=== PATIENT | female | born 1990 | race Caucasian/White ===

== ENCOUNTER 2016-07-15 08:39 | Emergency (ER) | payer BC ==
[~2016-07-15] VITALS: Ht 160 cm; Wt 53.5 kg
[2016-07-15] MEDS ORDERED: NS IV 1000 ML 1,000 ML IV STA (08:51)
[2016-07-15] MEDS ORDERED: KETOROLAC 30 MG/ML VIAL IVP STA (08:51)
[2016-07-15] MEDS ORDERED: HYOSCYAMINE 0.125 MG (LEVSIN) TAB SL ONE (09:00)
[2016-07-15 09:01] LABS: BILIRUBIN,URINE NEGATIVE (NEGATIVE); KETONES,URINE 4+ (NEGATIVE); LEUKOCYTE ESTERASE ,URINE NEGATIVE (NEGATIVE); NITRITE,URINE NEGATIVE (NEGATIVE); PH,URINE 6 (5-9); PROTEIN,URINE 1+ (NEGATIVE); UROBILINOGEN,URINE NORMAL (NORMAL)
[2016-07-15 09:07] LABS: BASOPHILS % (AUTO) 0 % (0-10); EOSINOPHILS % (AUTO) 0 % (0-10); LYMPHOCYTES # (AUTO) 0.7 X 10^3 (1.0-4.0); LYMPHOCYTES % (AUTO) 4 % (12-44); MEAN CORPUSCULAR HEMOGLOBIN 29 PG (25-34); MEAN CORPUSCULAR HGB CONC 34 G/DL (32-36); MEAN CORPUSCULAR VOLUME 86 FL (80-99); MEAN PLATELET VOLUME 10.7 FL (7.4-10.4); MONOCYTES % (AUTO) 5 % (0-12); NEUTROPHILS # (AUTO) 19.2 X 10^3 (1.8-7.8); NEUTROPHILS % (AUTO) 92 % (42-75); PLATELET COUNT 340 10^3/uL (130-400); RED BLOOD COUNT 4.89 10^6/uL (4.35-5.85)
[2016-07-15 09:13] LABS: WBC,URINE RARE /HPF
--- NOTE | 2016-07-15 09:22 | ED Abdominal Pain ---
General Chief Complaint: Abdominal/GI Problems Stated Complaint: ABD PAIN Source of Information: Patient Exam Limitations: No Limitations History of Present Illness Time Seen By Provider: 08:42 Initial Comments Here with report of lower abdominal pain started overnight and was quite severe this morning. She went to the urgent care clinic and then was sent here for further evaluation do to the significance of the pain. Reports multiple episodes of vomiting overnight. She reports that she's had this a few times before but only one other time that was this bad. She was told at that time it was an infection. She does admit that she has chronic bowel problems and has been told that she probably needs to follow up with somebody at some point. Denies vaginal discharge or bleeding. She is supposed to start her menstrual period next Monday. Timing/Duration: 4-6 Hours, Changing Over Time Severity/Quality: Moderate, Severe, Sharp, Stabbing Location: Suprapubic Radiation: RLQ, LLQ Activities at Onset: None Modifying Factors: Worsens With Movement, Improves With Resting Associated Symptoms: No Back Pain, No Chest Pain, No Fever/Chills, Nausea/ Vomiting Allergies and Home Medications Allergies Coded Allergies: No Known Drug Allergies (Unverified , 07/15/16) Home Medications Ciprofloxacin HCl 500 Mg Tablet, 500 MG PO BID, #14 Prescribed by: DON HERNANDEZ on 07/15/16 1103 Hyoscyamine Sulfate 0.125 Mg Tab.subl, 0.125 MG SL Q4H PRN for ABDOMINAL PAIN, # 20 Ref 0 Prescribed by: DON HERNANDEZ on 07/15/16 1103 Metronidazole 500 Mg Tablet, 500 MG PO BID, #14 Ref 0 Prescribed by: DON HERNANDEZ on 07/15/16 1103 Ondansetron 4 Mg Tab.rapdis, 4 MG PO Q6H PRN for NAUSEA/VOMITING, #8 Ref 0 Prescribed by: DON HERNANDEZ on 07/15/16 1103 Review of Systems Constitutional: see HPI, No chills, No fever EENTM: No Symptoms Reported Respiratory: No Symptoms Reported, Denies Cough, Denies Shortness of Air Cardiovascular: Denies Chest Pain, Denies Edema Gastrointestinal: See HPI, Abdominal Pain, Denies Diarrhea, Nausea, Denies Rectal Bleeding, Vomiting Genitourinary: Denies Discharge, Denies Pain Musculoskeletal: no symptoms reported Skin: no symptoms reported All Other Systems Reviewed Negative Unless Noted: Yes Past Cshmaok-Arlyxs-Qviazw Hx Patient Social History Alcohol Use: Denies Use Recreational Drug Use: No Smoking Status: Never a Smoker Recent Foreign Travel: No Contact w/Someone Who Travel: No Recent Hopitalizations: No Surgeries HX Surgeries: No Respiratory Hx Respiratory Disorders: No Cardiovascular Hx Cardiac Disorders: No Neurological Hx Neurological Disorders: No Genitourinary Hx Genitourinary Disorders: No Gastrointestinal Hx Gastrointestinal Disorders: No Musculoskeletal Hx Musculoskeletal Disorders: No Psychosocial Hx Psychiatric Problems: No Reviewed Nursing Assessment Reviewed/Agree w Nursing PMH: Yes Family Medical History Significant Family History: No Pertinent Family Hx Physical Exam Vital Signs VS - Last 72 Hours, by Label 07/15/16 08:43 Temp 98.7 Pulse 110 Resp 18 B/P (MAP) 122/86 Pulse Ox 99 O2 Delivery Room Air Capillary Refill : General Appearance: WD/WN, no apparent distress HEENT: PERRL/EOMI, pharynx normal Neck: full range of motion, supple Respiratory: lungs clear, normal breath sounds Cardiovascular: regular rate, rhythm, no murmur Gastrointestinal: soft, No guarding, No rebound, tenderness (lower abdominal tenderness noted without rebound or guarding.) Extremities: non-tender, normal inspection Back: normal inspection, no CVA tenderness, no vertebral tenderness Neurologic/Psychiatric: alert, oriented x 3 Skin: normal color, warm/dry Progress/Results/Core Measures Results/Orders Lab Results Laboratory Tests Test 07/15/16 08:52 07/15/16 08:59 Range/Units Urine Color YELLOW Urine Clarity CLEAR Urine pH 6 5-9 Urine Specific [place] 1.020 1.016-1.022 Urine Protein 1+ H NEGATIVE Urine Glucose (UA) NEGATIVE NEGATIVE Urine Ketones 4+ H NEGATIVE Urine Nitrite NEGATIVE NEGATIVE Urine Bilirubin NEGATIVE NEGATIVE Urine Urobilinogen NORMAL NORMAL MG/DL Urine Leukocyte Esterase NEGATIVE NEGATIVE Urine RBC (Auto) 3+ H NEGATIVE Urine RBC 2-5 H /HPF Urine WBC RARE /HPF Urine Squamous Epithelial Cells 2-5 /HPF Urine Crystals NONE /LPF Urine Bacteria FEW H /HPF Urine Casts NONE /LPF Urine Mucus SMALL H /LPF Urine Culture Indicated NO White Blood Count 21.0 H 4.3-11.0 10^3/uL Red Blood Count 4.89 4.35-5.85 10^6/uL Hemoglobin 14.1 11.5-16.0 G/DL Hematocrit 42 35-52 % Mean Corpuscular Volume 86 80-99 FL Mean Corpuscular Hemoglobin 29 25-34 PG Mean Corpuscular Hemoglobin Concent 34 32-36 G/DL Red Cell Distribution Width 13.0 10.0-14.5 % Platelet Count 340 130-400 10^3/uL Mean Platelet Volume 10.7 H 7.4-10.4 FL Neutrophils (%) (Auto) 92 H 42-75 % Lymphocytes (%) (Auto) 4 L 12-44 % Monocytes (%) (Auto) 5 0-12 % Eosinophils (%) (Auto) 0 0-10 % Basophils (%) (Auto) 0 0-10 % Neutrophils # (Auto) 19.2 H 1.8-7.8 X 10^3 Lymphocytes # (Auto) 0.7 L 1.0-4.0 X 10^3 Monocytes # (Auto) 1.0 0.0-1.0 X 10^3 Eosinophils # (Auto) 0.0 0.0-0.3 10^3/uL Basophils # (Auto) 0.0 0.0-0.1 10^3/uL Neutrophils % (Manual) 85 % Lymphocytes % (Manual) 7 % Monocytes % (Manual) 1 % Eosinophils % (Manual) 0 % Basophils % (Manual) 0 % Band Neutrophils 7 % Blood Morphology Comment NORMAL Sodium Level 140 135-145 MMOL/L Potassium Level 3.6 3.6-5.0 MMOL/L Chloride Level 105 98-107 MMOL/L Carbon Dioxide Level 23 21-32 MMOL/L Anion Gap 12 5-14 MMOL/L Blood Urea Nitrogen 12 7-18 MG/DL Creatinine 0.78 0.60-1.30 MG/DL Estimat Glomerular Filtration Rate > 60 BUN/Creatinine Ratio 15 Glucose Level 104 70-105 MG/DL Calcium Level 8.8 8.5-10.1 MG/DL Total Bilirubin 1.2 H 0.1-1.0 MG/DL Aspartate Amino Transf (AST/SGOT) 17 5-34 U/L Alanine Aminotransferase (ALT/SGPT) 20 0-55 U/L Alkaline Phosphatase 62 40-136 U/L C-Reactive Protein High Sensitivity 2.71 H 0.00-0.50 MG/DL Total Protein 7.6 6.4-8.2 G/DL Albumin 4.3 3.2-4.5 G/DL My Orders Orders - DON HERNANDEZ MD Cbc With Automated Diff (07/15/16 08:51) Comprehensive Metabolic Panel (07/15/16 08:51) Hs C Reactive Protein (07/15/16 08:51) Ua Culture If Indicated (07/15/16 08:51) Urine Bedside (07/15/16 08:51) Ns Iv 1000 Ml (Sodium Chloride 0.9%) (07/15/16 08:51) Hyoscyamine Sl Tablet (Levsin Sl Tablet) (07/15/16 09:00) Saline Lock/Iv-Start (07/15/16 08:51) Ketorolac Injection (Toradol Injection) (07/15/16 08:51) Manual Differential (07/15/16 08:59) Ct Abd/Pelv W (Appendicitis) (07/15/16 09:16) Iohexol Injection (Omnipaque 350 Mg/Ml 1 (07/15/16 09:30) Ns (Ivpb) (Sodium Chloride 0.9% Ivpb Bag (07/15/16 09:30) Ns Iv 1000 Ml (Sodium Chloride 0.9%) (07/15/16 10:51) Medications Given in ED Current Medications Medications Dose Ordered Sig/Vika Route Start Time Stop Time Status Last Admin Dose Admin Hyoscyamine Sulfate 0.125 mg ONCE ONCE SL 07/15/16 09:00 07/15/16 09:01 DC 07/15/16 09:06 0.125 MG Iohexol 100 ml ONCE ONCE IV 07/15/16 09:30 07/15/16 09:31 DC 07/15/16 09:38 100 ML Sodium Chloride 100 ml ONCE ONCE IV 07/15/16 09:30 07/15/16 09:31 DC 07/15/16 09:38 80 ML Sodium Chloride 1,000 ml @ 0 mls/hr Q0M ONCE IV 07/15/16 10:51 07/15/16 10:54 DC 07/15/16 10:57 1,000 MLS/HR Vital Signs/I&O Vital Sign - Last 12Hours 07/15/16 08:43 Temp 98.7 Pulse 110 Resp 18 B/P (MAP) 122/86 Pulse Ox 99 O2 Delivery Room Air Point of Care Testing Urine -Bedside: Negative Progress Note : Progress Note Seen and evaluated. IV, labs, UA and UCG ordered. negative. Levsin 0.125 mg by mouth and Toradol 30 mg IV given. Normal saline [address] abdomen and pelvis ordered due to the lower abdominal pain. Monitor patient. 1050: Overall feeling much better. 4+ ketones noted on UA. Repeat normal saline [address] abdomen and pelvis results reviewed with the patient. She understands requirement for follow-up with surgeon. Diagnostic Imaging Diagonstic Imaging: CT Plain Films/CT/US/NM/MRI: abdomen, pelvis Comments PT STATUS: REG ER : 1990 PHYSICIAN: DON HERNANDEZ MD ADMIT DATE: 07/15/16/ER Draft Date of Exam:07/15/16 CT ABD/PELV W (APPENDICITIS) PROCEDURE: CT abdomen and pelvis with contrast, rule out appendicitis. TECHNIQUE: Multiple contiguous axial images were obtained through the abdomen and pelvis after the administration of intravenous contrast. INDICATION: Severe pelvic pain. Nausea, vomiting, and diarrhea. COMPARISON: 01/25/2016 FINDINGS: Included views of the lung bases are clear. CT abdomen: Normal appendix is identified. There is, however, mild thickening, hyperenhancement, and stratification involving the wall of the probable mid to distal ileum within the lower central pelvis. Involved small bowel loops are also mildly dilated There is small amount of free fluid also present within the pelvis. There is no loculated air-fluid collection. There is no pneumatosis, pneumoperitoneum, nor portal venous gas. The proximal small bowel loops are nondistended. The kidneys, adrenal glands, spleen, pancreas, and liver have a normal appearance. No abnormal mesenteric or retroperitoneal adenopathy is seen. Bony structures show no acute abnormalities. CT pelvis: Urinary bladder is grossly unremarkable. Again, there is mild free fluid within the pelvis. There is no loculated air-fluid collection nor free air. No abnormal lymph nodes are seen. Bony structures show no acute abnormalities. IMPRESSION: 1. Abnormal appearance to the mid to distal ileum small bowel within the lower central pelvis. Findings are nonspecific, but can be seen with infectious or inflammatory enteritis. 2. Mild free fluid within the pelvis, but no loculated air-fluid collection, pneumatosis, pneumoperitoneum, nor portal venous gas. 3. Normal-appearing appendix. Dictated on workstation # [id number] Dict: 07/15/16 0952 Trans: 07/15/16 1007 CLARISSE [id number] Interpreted by: MEGHNA GRAY Electronically signed by: Carmelina Impression Impression: Primary Impression: Inflammation of small intestine Additional Impression: Lower abdominal pain Disposition: 01 HOME, SELF-CARE Condition: Improved Departure-Patient Inst. Decision time for Depature: 10:58 Referrals: ERIK OGDEN,LOCAL PHYSICIAN (PCP) Primary Care Physician Patient Instructions: Acute Abdomen (Belly Pain), Adult (DC) Add. Discharge Instructions: All discharge instructions reviewed with patient and/or family. Voiced understanding. Clear liquid diet for 24-48 hours and then advance as tolerated slowly. Do not take any bowel stimulants. You may use probiotic of your choice per package directions. Follow up with Dr. Ogden next week for recheck and further evaluation. Call his office today for appointment and to set up 3 appointment lab draw. Let them know that the case was discussed with Dr. Ogden who wants to see you next week. Return for worse pain, persistent vomiting, blood in your vomit or stool, inability to eat or drink or other concerns as needed. Take medications as directed. Scripts Ondansetron (Ondansetron Odt) 4 Mg Tab.rapdis 4 MG PO Q6H Y for NAUSEA/VOMITING, #8 TAB 0 Refills Prov: DON HERNANDEZ MD 07/15/16 Metronidazole (Metronidazole) 500 Mg Tablet 500 MG PO BID, #14 TAB 0 Refills Prov: DON HERNANDEZ MD 07/15/16 Ciprofloxacin HCl (Ciprofloxacin HCl) 500 Mg Tablet 500 MG PO BID, #14 TAB Prov: DON HERNANDEZ MD 07/15/16 Hyoscyamine Sulfate (Hyoscyamine Sulfate) 0.125 Mg Tab.subl 0.125 MG SL Q4H Y for ABDOMINAL PAIN, #20 TAB 0 Refills Prov: DON HERNANDEZ MD 07/15/16 Copy Copies To 1: ERIK OGDEN TIMOTHY D MD July 15, 2016 09:22
[2016-07-15] MEDS ORDERED: NS 100 ML (IVPB) BAG IV ONE (09:30)
[2016-07-15] MEDS ORDERED: IOHEXOL 350 MG/ML 100 ML (OMNIPAQUE 350) VIAL IV ONE (09:30)
[2016-07-15 09:31] LABS: ALANINE AMINOTRANSFERASE 20 U/L (0-55); ALBUMIN 4.3 G/DL (3.2-4.5); ANION GAP 12 MMOL/L (5-14); ASPARTATE AMINO TRANSFERASE 17 U/L (5-34); BILIRUBIN,TOTAL 1.2 MG/DL (0.1-1.0); BLOOD UREA NITROGEN 12 MG/DL (7-18); BUN/CREATININE RATIO 15; CALCIUM 8.8 MG/DL (8.5-10.1); CARBON DIOXIDE 23 MMOL/L (21-32); CHLORIDE 105 MMOL/L (98-107); CREATININE SERUM 0.78 MG/DL (0.60-1.30); GFR ESTIMATED > 60; GLUCOSE 104 MG/DL (70-105); POTASSIUM 3.6 MMOL/L (3.6-5.0); SODIUM 140 MMOL/L (135-145); TOTAL PROTEIN 7.6 G/DL (6.4-8.2); hs C REACTIVE PROTEIN 2.71 MG/DL (0.00-0.50)
[2016-07-15 09:33] LABS: BAND NEUTROPHILS 7 %; BASOPHILS % (MANUAL) 0 %; EOSINOPHILS % (MANUAL) 0 %; LYMPHOCYTES % (MANUAL) 7 %; NEUTROPHILS % (MANUAL) 85 %
--- NOTE | 2016-07-15 10:07 | Diagnostic Imaging Report ---
PROCEDURE: CT abdomen and pelvis with contrast, rule out appendicitis. TECHNIQUE: Multiple contiguous axial images were obtained through the abdomen and pelvis after the administration of intravenous contrast. INDICATION: Severe pelvic pain. Nausea, vomiting, and diarrhea. COMPARISON: 01/25/2016 FINDINGS: Included views of the lung bases are clear. CT abdomen: Normal appendix is identified. There is, however, mild thickening, hyperenhancement, and stratification involving the wall of the probable mid to distal ileum within the lower central pelvis. Involved small bowel loops are also mildly dilated There is small amount of free fluid also present within the pelvis. There is no loculated air-fluid collection. There is no pneumatosis, pneumoperitoneum, nor portal venous gas. The proximal small bowel loops are nondistended. The kidneys, adrenal glands, spleen, pancreas, and liver have a normal appearance. No abnormal mesenteric or retroperitoneal adenopathy is seen. Bony structures show no acute abnormalities. CT pelvis: Urinary bladder is grossly unremarkable. Again, there is mild free fluid within the pelvis. There is no loculated air-fluid collection nor free air. No abnormal lymph nodes are seen. Bony structures show no acute abnormalities. IMPRESSION: 1. Abnormal appearance to the mid to distal ileum small bowel within the lower central pelvis. Findings are nonspecific, but can be seen with infectious or inflammatory enteritis. 2. Mild free fluid within the pelvis, but no loculated air-fluid collection, pneumatosis, pneumoperitoneum, nor portal venous gas. 3. Normal-appearing appendix. Dictated by: Dictated on workstation # [id number]
[2016-07-15] MEDS ORDERED: NS IV 1000 ML 1,000 ML IV ONE (10:51)
[2016-07-15] MEDS ORDERED: HYOS0.1218 SL (11:03)
[2016-07-15] MEDS ORDERED: CIPR500T4 PO (11:03)
[2016-07-15] MEDS ORDERED: ONDA4TAB11 PO (11:03)
[2016-07-15] MEDS ORDERED: METR500T21 PO (11:03)
[2016-07-15 11:45] VITALS: BP 125/76
== END 2016-07-15 11:48 | disposition home or self-care (01) ==
LOC: EDUNIT# 08:39 → ER 08:42
DX: K52.9 Noninfective gastroenteritis and colitis, unspecified (principal)
CPT/HCPCS: 36415; 74177; 80053; 81000; 84703; 85007; 85027; 86141; 96361; 96374

== ENCOUNTER 2016-08-26 05:39 | Outpatient (CLI) | payer BC ==
[~2016-08-26] VITALS: Ht 160 cm; Wt 52.2 kg
[~2016-08-26 05:39] MED LIST: CIPR500T4 PO; HYOS0.1218 SL; METR500T21 PO; ONDA4TAB11 PO
== END 2016-08-26 11:03 ==
LOC: PREOP 05:39
PROVIDERS: ATTEND Surgery
DX: Z01.818 Encounter for other preprocedural examination (principal); R10.31 Right lower quadrant pain; R10.32 Left lower quadrant pain

== ENCOUNTER 2016-08-30 06:27 | Day surgery (SDC) | payer BC ==
[~2016-08-30] VITALS: Ht 160 cm; Wt 52.2 kg
[2016-08-30] MEDS ORDERED: fentaNYL INJECTION 100 MCG/2 ML AMP ONE (06:43)
[2016-08-30] MEDS ORDERED: MIDAZOLAM 2 MG/2 ML (VERSED) VIAL ONE (06:43)
[2016-08-30] MEDS ORDERED: proPOfol 200 MG/20 ML (DIPRIVAN) VIAL IV ONE (06:43)
[2016-08-30] MEDS ORDERED: NS IV 1000 ML 1,000 ML ONE (06:52)
[2016-08-30] MEDS ORDERED: NS IV 500 ML 500 ML IV PRN (06:53)
[2016-08-30] MEDS ORDERED: FLUMAZENIL (ROMAZICON) 0.1 MG/ML 5 ML VIAL INJ PRN (07:00)
[2016-08-30] MEDS ORDERED: NALOXONE 0.4 MG/ML 1 ML (NARCAN) VIAL IVP PRN (07:00)
[2016-08-30 07:14] VITALS: BP 128/80
[2016-08-30] MEDS ORDERED: NS IV 1000 ML 1,000 ML IV SCH (08:30)
--- NOTE | 2016-08-30 08:33 | Progress Note-Post Operative ---
Post-Operative Progess Note Surgeon (s)/Traction Power Engineer (s) Surgeon ERIK PETERS DO Traction Power Engineer: na Pre-Operative Diagnosis right and left lower abdominal pian Post-Operative Diagnosis inflammation at ileum, rectum Procedure & Operative Findings Date of Procedure 08/30/16 Procedure Performed/Findings colonoscopy with cold biopsies ileum and rectum Anesthesia Type per retail client solutions analyst Estimated Blood Loss Estimated blood loss (mL): none Specimens/Packing Specimens Removed ileum, and rectal ERIK PETERS DO Aug 30, 2016 8:33 am
--- NOTE | 2016-08-30 08:34 | Discharge Inst-Simple/Standard ---
Discharge Inst-Standard Patient Instructions/Follow Up Plan of Care/Instructions/FU: 2 weeks Alin Activity as Tolerated: Yes Discharge Diet: Regular Diet ERIK PETERS DO Aug 30, 2016 8:34 am
[2016-08-30 08:40] VITALS: BP 106/68
[2016-08-30 09:10] VITALS: BP 110/65
[2016-08-30 09:15] VITALS: BP 110/65
--- NOTE | 2016-08-30 19:19 | OPERATIVE REPORT ---
DATE OF SERVICE: 08/30/2016 PREOPERATIVE DIAGNOSIS: Left lower quadrant abdominal pain. POSTOPERATIVE DIAGNOSIS: Some inflammation of the terminal ileum and rectum. PROCEDURE: Colonoscopy with cold biopsies of the ileum and rectal inflammation. SURGEON: Erik Ogden DO ANESTHESIA: Per STUDENT [employer] DEAN. ESTIMATED BLOOD LOSS: None. COMPLICATIONS: None. INDICATIONS: The patient is a 25-year-old female who has been having right and left lower quadrant abdominal pain. She had a CT scan performed previously demonstrating some inflammation of the terminal ileum. She was explained the risks and benefits of procedure and wished to proceed with procedure. Consent was signed and on the chart. DESCRIPTION OF PROCEDURE: The patient was taken to the endoscopy suite, placed in left lateral recumbent position. Timeout was performed. Digital rectal exam was performed. There were no palpable polyps, masses or ulcerations. Scope was inserted in the rectum and advanced all the way to the cecum with minimal difficulty. Prep was adequate. Scope was then slowly retracted back. There were no polyps, masses or ulcerations within the cecum. The terminal ileum was intubated. The small amount of inflammation or erythematous changes was present in the ileum. Biopsies were obtained. The scope was then slowly retracted back into the colon where it was then continued to be slowly retracted back. There were no polyps, masses or ulcerations within the ascending colon, transverse colon, descending colon and sigmoid colon. As the scope was being retracted in the rectum, there was a small area of erythematous changes as well. Biopsy of this area was obtained. The scope was also retroflexed noting no other pathology. Scope was returned to its normal position, slowly withdrawn until completely removed. RECOMMENDATIONS: The patient will follow up on biopsies. At this time, we will not make any changes in medications. We will consider GI consultation. Job ID: [id number] DocumentID: [id number] Dictated Date: 08/30/2016 08:37:24 Watch Repair Person Date: 08/30/2016 14:35:41 Dictated By: ERIK OGDEN DO
== END 2016-08-30 09:15 | disposition home or self-care (01) ==
LOC: ENDO 06:27
PROVIDERS: ATTEND Surgery
DX: K52.9 Noninfective gastroenteritis and colitis, unspecified (principal); K62.89 Other specified diseases of anus and rectum
CPT/HCPCS: 84703

== ENCOUNTER 2019-02-09 20:12 | Emergency (ER) | payer BC ==
[~2019-02-09] VITALS: Ht 165 cm; Wt 63.6 kg
[~2019-02-09 20:12] MED LIST changes: +HYOS-19 SL; -HYOS0.1218 SL; +METR-145 PO; -METR500T21 PO
[2019-02-09] MEDS ORDERED: KETOROLAC 30 MG/ML VIAL IVP ONE (20:30)
--- NOTE | 2019-02-09 20:31 | ED Abdominal Pain ---
General Chief Complaint: Abdominal/GI Problems Stated Complaint: ABD PAIN Nursing Triage Note: Pt ambulates to RM 9 with c/o RLQ pain, deccreased appetite and dizziness x 3 days. Pt states she started her menstrual cycle on 02/07 and it has been more heavy than usual with small clots present. Pt has Hx of bladder infections. PT also reports urinary hesitancy, no burning. Sepsis Screen: No Definite Risk Source of Information: Patient Exam Limitations: No Limitations History of Present Illness Date Seen by Provider: Feb 09, 2019 Time Seen by Provider: 20:29 Initial Comments To ER with suprapubic/vaginal pain for the past 2-3 days. Preceding this was about a weeklong period of GI symptoms including nausea vomiting low-grade fever up to 100.5 and diarrhea. Those symptoms seem to have subsided, then she began her menstrual period 3 days ago. Typically her cycles last about 6 days, she is only on day 3 right now and has already had a tapering off of the vaginal bleeding. Timing/Duration: 1-2 Days Severity/Quality: Moderate Radiation: No Radiation Activities at Onset: None Associated Symptoms: Nausea/Vomiting Allergies and Home Medications Allergies Coded Allergies: No Known Drug Allergies (Unverified , 07/15/16) Home Medications Hyoscyamine Sulfate 0.125 Mg Tab.subl, 0.125 MG SL Q4H PRN for ABDOMINAL PAIN Prescribed by: DON HERNANDEZ on 07/15/16 1103 Ondansetron 4 Mg Tab.rapdis, 4 MG PO Q6H PRN for NAUSEA/VOMITING Prescribed by: DON HERNANDEZ on 07/15/16 1103 Patient Home Medication List Home Medication List Reviewed: Yes Review of Systems Review of Systems Constitutional: see HPI EENTM: No Symptoms Reported Respiratory: No Symptoms Reported Cardiovascular: No Symptoms Reported Gastrointestinal: See HPI, Abdominal Pain; Denies Constipated, Denies Diarrhea; Nausea Genitourinary: No Symptoms Reported Musculoskeletal: no symptoms reported Skin: no symptoms reported Psychiatric/Neurological: No Symptoms Reported Endocrine: No Symptoms Reported Past Dvrgwxu-Jjsygq-Nxfhws Hx Patient Social History Alcohol Use: Denies Use Recreational Drug Use: No Smoking Status: Never a Smoker Recent Foreign Travel: No Contact w/Someone Who Travel: No Recent Infectious Disease Expo: No Recent Hopitalizations: No Physical Abuse: No Sexual Abuse: No Mistreated: No Fear: No Seasonal Allergies Seasonal Allergies: No Past Medical History Surgeries: No Respiratory: No Currently Using CPAP: No Cardiac: No Neurological: No Reproductive Disorders: No Female Reproductive Disorders: Denies Sexually Transmitted Disease: No Gastrointestinal: Yes (abd pain) Musculoskeletal: No Endocrine: No Loss of Vision: Denies Cancer: No Psychosocial: No Integumentary: No Blood Disorders: Yes (anemia) Family Medical History No Pertinent Family Hx Physical Exam Vital Signs Vital Signs - First Documented 02/09/19 20:16 Temp 37.0 Pulse 83 Resp 20 B/P (MAP) 131/84 (100) Pulse Ox 100 O2 Delivery Room Air Capillary Refill : Less Than 3 Seconds Height/Weight/BMI Height: 5'3.00" Weight: 115lbs. 0.0oz. [id number]; 23.00 BMI Method:Stated General Appearance: WD/WN, no apparent distress HEENT: PERRL/EOMI, normal ENT inspection Respiratory: no respiratory distress, no accessory muscle use Cardiovascular: regular rate, rhythm, no murmur Gastrointestinal: normal bowel sounds, soft, tenderness Extremities: normal range of motion, non-tender Neurologic/Psychiatric: alert, normal mood/affect, oriented x 3 Skin: normal color, warm/dry Progress/Results/Core Measures Results/Orders Lab Results Laboratory Tests Test 02/09/19 20:25 02/09/19 20:40 Range/Units Urine Color YELLOW Urine Clarity CLEAR Urine pH 6.0 5-9 Urine Specific [place] >=1.030 1.016-1.022 Urine Protein NEGATIVE NEGATIVE Urine Glucose (UA) NEGATIVE NEGATIVE Urine Ketones 1+ H NEGATIVE Urine Nitrite NEGATIVE NEGATIVE Urine Bilirubin NEGATIVE NEGATIVE Urine Urobilinogen 0.2 < = 1.0 MG/DL Urine Leukocyte Esterase NEGATIVE NEGATIVE Urine RBC (Auto) 3+ H NEGATIVE Urine RBC 5-10 H /HPF Urine WBC NONE /HPF Urine Squamous Epithelial Cells 2-5 /HPF Urine Crystals NONE /LPF Urine Bacteria FEW H /HPF Urine Casts NONE /LPF Urine Mucus MODERATE H /LPF Urine Culture Indicated NO White Blood Count 6.9 4.3-11.0 10^3/uL Red Blood Count 4.30 L 4.35-5.85 10^6/uL Hemoglobin 12.4 11.5-16.0 G/DL Hematocrit 37 35-52 % Mean Corpuscular Volume 85 80-99 FL Mean Corpuscular Hemoglobin 29 25-34 PG Mean Corpuscular Hemoglobin Concent 34 32-36 G/DL Red Cell Distribution Width 13.1 10.0-14.5 % Platelet Count 313 130-400 10^3/uL Mean Platelet Volume 10.7 H 7.4-10.4 FL Neutrophils (%) (Auto) 42 42-75 % Lymphocytes (%) (Auto) 43 12-44 % Monocytes (%) (Auto) 13 H 0-12 % Eosinophils (%) (Auto) 2 0-10 % Basophils (%) (Auto) 1 0-10 % Neutrophils # (Auto) 2.8 1.8-7.8 X 10^3 Lymphocytes # (Auto) 2.9 1.0-4.0 X 10^3 Monocytes # (Auto) 0.9 0.0-1.0 X 10^3 Eosinophils # (Auto) 0.2 0.0-0.3 10^3/uL Basophils # (Auto) 0.1 0.0-0.1 10^3/uL Sodium Level 140 135-145 MMOL/L Potassium Level 3.3 L 3.6-5.0 MMOL/L Chloride Level 106 98-107 MMOL/L Carbon Dioxide Level 23 21-32 MMOL/L Anion Gap 11 5-14 MMOL/L Blood Urea Nitrogen 12 7-18 MG/DL Creatinine 0.80 0.60-1.30 MG/DL Estimat Glomerular Filtration Rate > 60 BUN/Creatinine Ratio 15 Glucose Level 94 70-105 MG/DL Calcium Level 8.7 8.5-10.1 MG/DL Corrected Calcium 8.5 8.5-10.1 MG/DL Total Bilirubin 0.4 0.1-1.0 MG/DL Aspartate Amino Transf (AST/SGOT) 17 5-34 U/L Alanine Aminotransferase (ALT/SGPT) 17 0-55 U/L Alkaline Phosphatase 59 40-136 U/L Total Protein 7.4 6.4-8.2 GM/DL Albumin 4.3 3.2-4.5 GM/DL Serum Test, Qualitative NEGATIVE NEGATIVE My Orders Orders - HUBER GALICIA APRN Cbc With Automated Diff (02/09/19 20:28) Comprehensive Metabolic Panel (02/09/19 20:28) Ua Culture If Indicated (02/09/19 20:28) Hcg,Qualitative Serum (02/09/19 20:28) Ed Iv/Invasive Line Start (02/09/19 20:28) Ketorolac Injection (Toradol Injection) (02/09/19 20:30) Medications Given in ED Current Medications Medications Dose Ordered Sig/Vika Route Start Time Stop Time Status Last Admin Dose Admin Ketorolac Tromethamine 15 mg ONCE ONCE IVP 02/09/19 20:30 02/09/19 20:31 DC 02/09/19 20:40 15 MG Vital Signs/I&O 02/09/19 20:16 Temp 37.0 Pulse 83 Resp 20 B/P (MAP) 131/84 (100) Pulse Ox 100 O2 Delivery Room Air Blood Pressure Mean: 100 POS Departure Communication (Admissions) 2129-states she is feeling less crampy, still denies pain reports this is more of a "weird feeling". Discussed with her possible etiologies, discussed with her obtaining CT scan tonight. She would like to avoid radiation if possible. This is reasonable given her normal labs. She would like to have an outpatient ultrasound done, she'll follow up with her primary care provider on Monday. I did also recommend pelvic exam with swabs tonight, however she would like to have her female family physician do this on Monday. She states the pain is not bothersome it's just an unusual sensation. I would suspect ovarian cyst and discussed this with her. Impression Primary Impression: Pelvic pain Disposition: HOME, SELF-CARE Condition: Stable Departure-Patient Inst. Decision time for Depature: 21:31 Referrals: NAGIE VELEZ MD (PCP/Family) Primary Care Physician Patient Instructions: Acute Pelvic Pain Add. Discharge Instructions: 1. You do not have a bladder infection. Your blood work is normal. Follow-up on Monday with primary care, call Dr. Velez for an appointment to be seen. Call the scheduling department for the pelvic ultrasound with report to be sent to Dr. Velez. Return to ER in the meantime for any worsening pain, fevers or any other concerns. Tylenol and ibuprofen are fine for pain control. All discharge instructions reviewed with patient and/or family. Voiced understanding. Copy Copies To 1: ANGIE VELEZ MD, PETER J APRN Feb 09, 2019 20:31 POS
[2019-02-09 20:42] LABS: BILIRUBIN,URINE NEGATIVE (NEGATIVE); CLARITY,URINE CLEAR; COLOR,URINE YELLOW; GLUCOSE, URINE (UA) NEGATIVE (NEGATIVE); KETONES,URINE 1+ (NEGATIVE); LEUKOCYTE ESTERASE ,URINE NEGATIVE (NEGATIVE); NITRITE,URINE NEGATIVE (NEGATIVE); PROTEIN,URINE NEGATIVE (NEGATIVE)
[2019-02-09 20:49] LABS: BASOPHILS # (AUTO) 0.1 10^3/uL (0.0-0.1); BASOPHILS % (AUTO) 1 % (0-10); EOSINOPHILS # (AUTO) 0.2 10^3/uL (0.0-0.3); EOSINOPHILS % (AUTO) 2 % (0-10); HEMATOCRIT 37 % (35-52); HEMOGLOBIN 12.4 G/DL (11.5-16.0); LYMPHOCYTES # (AUTO) 2.9 X 10^3 (1.0-4.0); LYMPHOCYTES % (AUTO) 43 % (12-44); MEAN CORPUSCULAR HEMOGLOBIN 29 PG (25-34); MEAN CORPUSCULAR HGB CONC 34 G/DL (32-36); MEAN CORPUSCULAR VOLUME 85 FL (80-99); MEAN PLATELET VOLUME 10.7 FL (7.4-10.4); MONOCYTES # (AUTO) 0.9 X 10^3 (0.0-1.0); MONOCYTES % (AUTO) 13 % (0-12); NEUTROPHILS # (AUTO) 2.8 X 10^3 (1.8-7.8); NEUTROPHILS % (AUTO) 42 % (42-75); PLATELET COUNT 313 10^3/uL (130-400); RED CELL DISTRIBUTION WIDTH 13.1 % (10.0-14.5); WHITE BLOOD COUNT 6.9 10^3/uL (4.3-11.0)
[2019-02-09 20:53] LABS: BACTERIA,URINE FEW /HPF
[2019-02-09 21:11] LABS: ALANINE AMINOTRANSFERASE 17 U/L (0-55); ALBUMIN 4.3 GM/DL (3.2-4.5); ALKALINE PHOSPHATASE 59 U/L (40-136); BILIRUBIN,TOTAL 0.4 MG/DL (0.1-1.0); BUN/CREATININE RATIO 15; CALCIUM 8.7 MG/DL (8.5-10.1); CARBON DIOXIDE 23 MMOL/L (21-32); CHLORIDE 106 MMOL/L (98-107); GFR ESTIMATED > 60; GLUCOSE 94 MG/DL (70-105); POTASSIUM 3.3 MMOL/L (3.6-5.0); SODIUM 140 MMOL/L (135-145); TOTAL PROTEIN 7.4 GM/DL (6.4-8.2)
[2019-02-09 21:41] VITALS: BP 125/82
== END 2019-02-09 21:40 | disposition home or self-care (01) ==
LOC: EDUNIT# 20:12 → ER 20:13
DX: R10.2 Pelvic and perineal pain (principal); D64.9 Anemia, unspecified
CPT/HCPCS: 36415; 80053; 81000; 84703; 85025; 96374

== ENCOUNTER → 2019-02-12 | Outpatient (CLI) | payer BC ==
--- NOTE | 2019-02-12 15:57 | Diagnostic Imaging Report ---
PROCEDURE: US Non-ob pelvis comp/trans. TECHNIQUE: Multiple realtime grayscale images were obtained of the pelvis in various projections endovaginally. Transabdominal imaging was also performed. INDICATION: Pelvic pain. FINDINGS: The uterus measures 6.3 x 3.9 x 2.4 cm. Endometrium is 4 mm in thickness. No myometrial mass is identified. The right ovary measures 3.3 x 2.2 x 2.1 cm and the left ovary measures 3.2 x 2.1 x 1.9 cm. There are follicles involving bilateral ovaries. There is blood flow to both ovaries. No adnexal mass or free fluid is detected. IMPRESSION: Unremarkable pelvic ultrasound. Dictated by: Dictated on workstation # [id number]
== END ==
LOC: RAD 14:39
PROVIDERS: ATTEND Nurse Practitioner Family
DX: R10.2 Pelvic and perineal pain (principal)
CPT/HCPCS: 76830; 76856

== ENCOUNTER → 2019-05-16 | Outpatient (CLI) | payer BC ==
--- NOTE | 2019-05-16 15:34 | Diagnostic Imaging Report ---
PROCEDURE: US Renal Bilateral. TECHNIQUE: Multiple real-time grayscale images were obtained over the kidneys in various projections bilaterally. INDICATION: Hematuria. FINDINGS: Right kidney measures 10.4 x 5.9 x 5.4 cm, and the left kidney measures 9.7 x 5.5 x 5.2 cm. Cortical thickness and echogenicity are normal. There does appear to be some mild right-sided hydronephrosis. There is an echogenic focus within the right renal collecting system measuring 3 mm x 6 mm and may represent a stone. No other calculi are seen. Bladder is unremarkable. Bilateral ureteral jets are visualized. IMPRESSION: Mild right-sided hydronephrosis and probable nonobstructing right renal calculus. Dictated by: Dictated on workstation # [id number]
== END ==
LOC: RAD 14:27
PROVIDERS: ATTEND Obstetrics & Gynecology
DX: N13.30 Unspecified hydronephrosis (principal)
CPT/HCPCS: 76770

== ENCOUNTER → 2019-07-15 | Outpatient (CLI) | payer BC ==
--- NOTE | 2019-07-15 16:15 | Diagnostic Imaging Report ---
INDICATION: Hematuria during . survey. TECHNIQUE: Multiple real-time grayscale images were obtained over the gravid uterus. COMPARISON: None. FINDINGS: There is a single live intrauterine in transverse lie with head to maternal right. The cervix is closed and measures approximately 7 cm in length. Placenta is anterior in position and there is no previa. The amount of amniotic fluid is normal with an DARINEL of 19.82 cm. heart rate is 149 bpm. Due to a gestational age, maternal adnexa are suboptimally evaluated. growth parameters are supplied below. anatomy survey was performed and the following structures are visualized and normal: Cerebral ventricles, cerebellum, cisterna magna, umbilical cord insertion, spine, four-chamber heart, stomach, three-vessel cord, urinary bladder, kidneys, profile and all four extremities. Biometrical measurements are as follows: Biparietal 5.65 cm, age 23 weeks 2 days. Head circumference 21.09 cm, age 23 weeks 2 days. Abdominal circumference 18.32 cm, age 23 weeks 2 days. Femur length 4.03 cm, age 23 weeks 1 days. Sonographic estimate age: 23 weeks 2 days. Sonographic estimated date of delivery: 11/09/2019. Estimated Weight: 563 gm (+/- 82 gm). LMP percentile: 28%. heart rate: 149 beats per minute. number: 1 of 1. IMPRESSION: 1. Single live intrauterine with normal anatomy survey. 2. Estimated gestational age by ultrasound is concordant with LMP. Dictated by: Dictated on workstation # [id number]
== END ==
LOC: RAD 14:53
PROVIDERS: ATTEND Obstetrics & Gynecology
DX: Z36.9 Encounter for antenatal screening, unspecified (principal); Z3A.23 23 weeks gestation of pregnancy
CPT/HCPCS: 76805

== ENCOUNTER → 2021-04-06 | Outpatient (CLI) | payer BC ==
[~2021-04-06] MED LIST changes: +ACHD5005 PO; -CIPR500T4 PO; +CIPR500T5 PO; +DOCU-239 PO; +FERR325T18 PO; +IBUP-844 PO
--- NOTE | 2021-04-06 14:52 | Diagnostic Imaging Report ---
INDICATION: survey. TECHNIQUE: Multiple real-time grayscale images were obtained over the gravid uterus. COMPARISON: None FINDINGS: There is a single live fetus in a cephalic presentation. heart rate was recorded 146 bpm. Placenta is posterior and low lying. Amniotic fluid volume is normal. Cervical length is 5.3 cm. survey demonstrates bladder and stomach are unremarkable. brain is unremarkable. There is a four-chamber heart. There is a three-vessel cord with normal insertion. spines are unremarkable. Kidneys are somewhat limited in evaluation due to position. Biometrical measurements are as follows: Biparietal 4.36 cm, age 19 weeks 2 days. Head circumference 16.30 cm, age 19 weeks 1 days. Abdominal circumference 14.14 cm, age 19 weeks 4 days. Femur length 3.02 cm, age 19 weeks 3 days. Sonographic estimate age: 19 weeks 3 days. Sonographic estimated date of delivery: 08/28/2021. Estimated Weight: 290 gm (+/- 43 gm). LMP percentile: 28%. heart rate: 146 beats per minute. number: 1 of 1. IMPRESSION: Single live IUP 19 weeks 3 days gestational age. Estimated date of confinement sonographically 08/28/2021. Low lying posterior placenta. In addition, kidneys are somewhat limited in evaluation due to position. Follow-up ultrasound could be performed to further evaluate placental location as well as kidneys. Dictated by: Dictated on workstation # [id number]
== END ==
LOC: RAD 12:00
PROVIDERS: ATTEND Obstetrics & Gynecology
DX: Z34.02 Encounter for supervision of normal first pregnancy, second trimester (principal); Z3A.19 19 weeks gestation of pregnancy
CPT/HCPCS: 76805

== ENCOUNTER 2021-08-13 05:31 | Outpatient (CLI) | payer BC ==
[~2021-08-13] VITALS: Ht 160 cm; Wt 71.4 kg
[2021-08-16] MEDS ORDERED: PNV1TABL9 PO (10:24)
== END 2021-08-16 10:31 | disposition home or self-care (01) ==
LOC: PREOP 05:31
PROVIDERS: ATTEND Obstetrics & Gynecology
DX: Z01.818 Encounter for other preprocedural examination (principal)

== ENCOUNTER 2021-08-20 05:32 | Inpatient (IN) | payer BC ==
[2021-08-20] VITALS (9 sets, daily range): BP systolic 97–123; BP diastolic 52–76
[~2021-08-20] VITALS: Ht 160 cm; Wt 72.2 kg
[~2021-08-20 05:32] MED LIST changes: +PNV1TABL9 PO
[2021-08-20] MEDS ORDERED: LACTATED RINGERS 1,000 ML IV PRN ×2 (06:00)
[2021-08-20] MEDS ORDERED: ceFAZolin 2 GM IV Premixed 50 ML IV ONE (06:00)
[2021-08-20] MEDS ORDERED: CITRIC ACID/SOB CIT (BICITRA) 30 ML UDC PO ONE (06:00)
[2021-08-20] MEDS ORDERED: FAMOTIDINE 20MG/2ML IV (PEPCID) IV ONE (06:00)
[2021-08-20] MEDS ORDERED: METOCLOPRAMIDE INJ 10 MG/2 ML (REGLAN) IV ONE (06:00)
[2021-08-20] MEDS ORDERED: CATHETER FLUSH 10 ML SYR IV PRN (06:00)
[2021-08-20 06:09] LABS: BASOPHILS # (AUTO) 0.1 10^3/uL (0.0-0.1); BASOPHILS % (AUTO) 1 % (0-10); EOSINOPHILS # (AUTO) 0.2 10^3/uL (0.0-0.3); EOSINOPHILS % (AUTO) 2 % (0-10); HEMATOCRIT 34 % (35-52); HEMOGLOBIN 11.6 g/dL (11.5-16.0); LYMPHOCYTES # (AUTO) 2.7 10^3/uL (1.0-4.0); LYMPHOCYTES % (AUTO) 20 % (12-44); MEAN CORPUSCULAR HEMOGLOBIN 28 pg (25-34); MEAN CORPUSCULAR HGB CONC 34 g/dL (32-36); MEAN CORPUSCULAR VOLUME 84 fL (80-99); MEAN PLATELET VOLUME 11.4 fL (9.0-12.2); MONOCYTES # (AUTO) 1.3 10^3/uL (0.0-1.0); MONOCYTES % (AUTO) 9 % (0-12); NEUTROPHILS # (AUTO) 9.4 10^3/uL (1.8-7.8); NEUTROPHILS % (AUTO) 68 % (42-75); PLATELET COUNT 282 10^3/uL (130-400)
[2021-08-20] MEDS ORDERED: fentaNYL INJ 100 MCG/2 ML AMP ONE (07:02)
[2021-08-20] MEDS ORDERED: ROPIVACAINE 5MG/ML 30ML VIAL ONE (07:02)
--- NOTE | 2021-08-20 07:11 | History & Physical-OB ---
OB - Chief Complaint & HPI Date/Time Date of Admission: Date of Admission: Aug 20, 2021 at 05:32 Date seen by a Provider: Aug 20, 2021 Time Seen by a Provider: 06:55 Chief Complaint/History OB-Reason for Admission/Chief: Section Hx : 2 Hx Para: 1 Expected Date of Delivery: Aug 26, 2021 Gestational Age in Weeks: 39 Gestational Age in Days: 1 Indication for : desires repeat Admission Nurse Assessment Rev: Yes History of Labs O neg Antibody neg RI RPR NR HBsAg NR HIV NR GC neg GBS neg Allergies and Home Medications Allergies Coded Allergies: No Known Drug Allergies (Unverified , 11/10/19) Patient Home Medication List Home Medication List Reviewed: Yes Pnv Cmb#21/Iron/Folic Acid ( Complete [place]) 14 Mg Iron-400 Mcg Tablet, 1 EACH PO UD, (Reported) Entered as Reported by: CHAPIS ISSA on 08/16/21 1024 Last Action: Reviewed Discontinued Medications Docusate Sodium (Dok) 100 Mg Capsule, 100 MG PO BID Discontinued Reason: No Longer Taking Prescribed by: KATIE CHÁVEZ on 11/12/1930 Ferrous Sulfate (Ferrous Sulfate) 325 Mg Tablet, 325 MG PO DAILY Discontinued Reason: No Longer Taking Prescribed by: KATIE CHÁVEZ on 11/13/19 0759 Hydrocodone/Acetaminophen (Hydrocodone-Acetamin 5-325 mg) 1 Each Tablet, 1-2 TAB PO Q6HR PRN for PAIN-MODERATE (5-7) Discontinued Reason: No Longer Taking Prescribed by: KATIE CHÁVEZ on 11/12/19729 Ibuprofen (Ibu) 600 Mg Tablet, 600 MG PO Q6HR Discontinued Reason: No Longer Taking Prescribed by: KATIE CHÁVEZ on 11/12/19 0730 OB - History Hx of Present Care: Yes Ultrasounds: Normal mid trimester US Obstetrical Complications: None Medical Complications: None Delivery History Hx Blood Disorders: Yes (anemia) Patient Past Medical History n/a Immunizations Hepatitis A: Yes Hepatitis B: Yes OB - Admission Exam Physical Exam Vitals: Vital Signs HEENT: NCAT Heart: Rhythm Normal Lungs: Clear Abdomen: Gravid Extremities: Normal Reflexes: Normal Membranes: Intact Heart Rate: 130's Accelerations: Accelerations Present Decelerations: No Decelerations Short Term Variability: Present [employer]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 Variability: Average (6-25) Contractions on Admission: >10 Minutes Apart Intensity: Mild Labs Laboratory Tests Test 08/20/21 05:50 Range/Units White Blood Count 14.0 H 4.3-11.0 10^3/uL Red Blood Count 4.12 3.80-5.11 10^6/uL Hemoglobin 11.6 11.5-16.0 g/dL Hematocrit 34 L 35-52 % Mean Corpuscular Volume 84 80-99 fL Mean Corpuscular Hemoglobin 28 25-34 pg Mean Corpuscular Hemoglobin Concent 34 32-36 g/dL Red Cell Distribution Width 14.7 H 10.0-14.5 % Platelet Count 282 130-400 10^3/uL Mean Platelet Volume 11.4 9.0-12.2 fL Immature Granulocyte % (Auto) 2 % Neutrophils (%) (Auto) 68 42-75 % Lymphocytes (%) (Auto) 20 12-44 % Monocytes (%) (Auto) 9 0-12 % Eosinophils (%) (Auto) 2 0-10 % Basophils (%) (Auto) 1 0-10 % Neutrophils # (Auto) 9.4 H 1.8-7.8 10^3/uL Lymphocytes # (Auto) 2.7 1.0-4.0 10^3/uL Monocytes # (Auto) 1.3 H 0.0-1.0 10^3/uL Eosinophils # (Auto) 0.2 0.0-0.3 10^3/uL Basophils # (Auto) 0.1 0.0-0.1 10^3/uL Immature Granulocyte # (Auto) 0.3 H 0.0-0.1 10^3/uL OB - Assessment/Plan/Diagnosis Assessment Assessment: section Admission Dx 30 yo @ 39.1 Previous GBS neg Admission Status: Inpatient Order (span 2 midnights) Reason for Inpatient Admission: Repeat at 39 weeks Plan Plan: Section KATIE CHÁVEZ DO Aug 20, 2021 07:10
--- NOTE | 2021-08-20 07:13 | Discharge Inst-Women's Service ---
Discharge Inst-Women's Serv Depart Medication/Instructions New, Converted or Re-Newed RX: Transmitted to Pharmacy Final Diagnosis POD 2 RLTCS Problems Reviewed?: Yes Consults/Follow Up Additional Follow Up: Yes Orders/Referrals Dr. Schumacher in 7-10 days and in 6 weeks Activity Activity: Activity as Tolerated Driving Instructions: No Driving for 1 Week NO SMOKING: NO SMOKING Nothing Inside Vagina: No Douching, No [place], No Tampons Diet Discharge Diet: No Restrictions Symptoms to Report to : Bleeding Excessive, Pain Increased, Fever Over 101 Degrees F, Vaginal Bleeding Increase, Questions/Concerns For Any Problems or Questions: Contact Your Physician Skin/Wound Care Infection Signs and Symptoms: Increased Redness, Foul Odor of Wound, Increased Drainage, Skin Itchy or Has a Rash, Increased Swelling, Temperature Above 101 F Operative Area Clean and Dry: Keep Incision Clean/Dry Stitches/[place]/Dermabond: Dermabond, Care of Stitches Bathing Instructions: KATIE Olson DO Aug 20, 2021 07:13
[2021-08-20] MEDS ORDERED: IBUP-844 PO (07:14)
[2021-08-20] MEDS ORDERED: ACHD5005 PO (07:14)
[2021-08-20] MEDS ORDERED: DOCU100C37 PO (07:14)
[2021-08-20] MEDS ORDERED: ONDANSETRON 4 MG/2 ML (SDV) Z0FRAN IVP PRN (07:15)
[2021-08-20] MEDS ORDERED: MEASLES,MUMPS,RUBELLA 1 EA INJ SC SCH (07:15)
[2021-08-20] MEDS ORDERED: NALOXONE 0.4 MG/ML 1 ML (NARCAN) VIAL IV PRN (07:15)
[2021-08-20] MEDS ORDERED: TETANUS,DIPTH,PERTUSS P/F (BOOSTRIX) 0.5 ML VIAL IM SCH (07:15)
[2021-08-20] MEDS ORDERED: PHENYLEPHRINE 100 MCG/ML 10 ML (ANESTHESIA) SYR ONE (07:39)
[2021-08-20] MEDS ORDERED: GLYCOPYRROLATE 0.2 MG/ML (ROBINUL) 2 ML VIAL ONE (07:45)
[2021-08-20] MEDS: OXYTOCIN PRE-MIX DRIP 500 ML IV SCH ×2 (08:39→13:25)
[2021-08-20] MEDS ORDERED: KETOROLAC 30 MG/ML VIAL ONE (09:37)
[2021-08-20] MEDS: KETOROLAC 30 MG/ML VIAL IV SCH ×3 (09:44→22:07)
[2021-08-20] MEDS: HYDROcodone/APAP 5 MG/325 MG (LORTAB) TAB PO PRN ×3 (12:22→18:57)
--- NOTE | 2021-08-20 14:21 | OPERATIVE REPORT ---
DATE OF SERVICE: PREOPERATIVE DIAGNOSES: 1. A 30-year-old G2, P1 at 39 weeks and 1 day gestation. 2. Previous section. POSTOPERATIVE DIAGNOSES: 1. A 30-year-old G2, P1 at 39 weeks and 1 day gestation. 2. Previous section. PROCEDURE: Repeat low transverse section. SURGEON: Gilson Chávez DO REFERRAL MANAGER: Mary Sotelo DNP, was necessary for manipulation and retraction throughout the procedure. ANESTHESIA: Spinal. ESTIMATED BLOOD LOSS: 600 mL. URINE OUTPUT: 100 mL clear at the end of the procedure. FLUIDS: 800 mL lactated Ringer's solution. FINDINGS: A live male weighing 6 pounds 8 ounces, Apgars of 8 and 9. Grossly normal appearing uterus, bilateral fallopian tubes and ovaries. SPECIMEN SENT: None. INDICATIONS FOR PROCEDURE: This 30-year-old female is a patient who had sought care in my office. Her care has been uncomplicated with the exception of wanting to proceed with repeat . Risks of the procedure were discussed with the patient in detail throughout her care. Her questions were answered prior to visit in the preoperative area, once again everything again was reviewed. All of her questions were answered, consent was obtained, the patient was taken to the operating room. OPERATIVE REPORT IN DETAIL: Once in the operating room, spinal analgesia was found to be adequate. She was placed in supine position with leftward tilt, prepped and draped in normal sterile fashion. Timeout was performed and anesthesia was tested. I then make an incision on the inferior and posterior margin of the previously existing keloid scar using a knife and excised the keloid scar using Bovie cautery. I then continued with my incision using Bovie electrocautery down to the level of the fascia, at which point I incised the fascia and took this incision laterally using Bovie cautery. The superior aspect of fascial incision was then grasped with Karuna clamps, tented up and dissected off the underlying rectus muscles. The inferior aspect of the fascial incision was then grasped with Karuna clamps, tented up and dissected off the underlying rectus muscles. The rectus muscles were then dissected down the midline, which exposed the peritoneum, which I entered bluntly and extended using blunt traction. An Vincenzo ring retractor was placed in the peritoneal incision, which offers excellent lateral sidewall retraction. I identified the lower uterine segment, which was found to be thinned out and make a low transverse incision to the vesicouterine peritoneum until membranes were encountered. I then extended the uterine incision laterally and superiorly using bandage scissors. Amniotomy was performed in the process of doing this, clear fluid was noted. Infant was found in vertex presentation. With gentle fundal pressure, the infant's head was elevated up the incision where the nares and oropharynx were bulb suctioned. Anterior and posterior shoulders were delivered after nuchal cord was reduced x1. was then brought to the operative field with cord doubly clamped and cut and was handed off to waiting nurses in attendance. Cord blood was collected, 3-vessel cord with intact placenta was delivered spontaneously thereafter. IV Pitocin was initiated to facilitate uterine contraction. Uterine fundus confirmed by manual massage. Uterus was then exteriorized and cleared of all endometrial clots and debris. I then proceeded with closing the uterine incision using 0 Vicryl suture in running locked fashion. Second layer of imbricating 0 Monocryl was placed. Excellent hemostasis was noted after doing this. I then placed the uterus back in the pelvis and copiously irrigated the pelvis using normal saline. Once again, there was no active bleeding noted from any of my dissection planes. I placed Interceed antiadhesive over my low transverse incision. I removed the Vincenzo ring retractor and then proceeded with closing the peritoneum using 3-0 Vicryl suture in a running fashion. The rectus muscle reapproximated using 3-0 Vicryl suture in interrupted fashion. The fascia was reapproximated using 0 Vicryl suture in a running fashion. Subcutaneous tissue was reapproximated using 3-0 plain in interrupted subcutaneous stitch and skin reapproximated using 4-0 Monocryl running subcuticular. Dermabond was applied to incision and sterile dressing with adhesive white tape. The patient tolerated the procedure well and sent to recovery in stable condition. Lap and sponge counts were correct at the end of the procedure. Instrument counts correct as well. Two grams of Ancef given preoperatively for infection prophylaxis. Job ID: [id number] DocumentID: [id number] Dictated Date: 08/20/2021 08:29:21 Lemon Picker Date: 08/20/2021 14:20:44 Dictated By: GILSON CHÁVEZ DO
[2021-08-20] MEDS: DOCUSATE SODIUM 100 MG (COLACE) CAP PO SCH ×2 (14:29→22:06)
[2021-08-20] MEDS: CATHETER FLUSH 10 ML SYR IV SCH ×2 (14:31→17:35)
[2021-08-21 00:30] VITALS: BP 101/55
[2021-08-21] MEDS: HYDROcodone/APAP 5 MG/325 MG (LORTAB) TAB PO PRN ×5 (00:33→20:08)
[2021-08-21 04:54] VITALS: BP 119/67
[2021-08-21] MEDS: KETOROLAC 30 MG/ML VIAL IV SCH (04:57)
[2021-08-21] MEDS ORDERED: IBUPROFEN 600 MG (MOTRIN) TAB PO ONE (05:06)
[2021-08-21] MEDS: IBUPROFEN 600 MG (MOTRIN) TAB PO SCH ×4 (05:08→23:12)
[2021-08-21] MEDS: CATHETER FLUSH 10 ML SYR IV SCH (06:03)
[2021-08-21 06:21] LABS: BASOPHILS # (AUTO) 0.1 10^3/uL (0.0-0.1); BASOPHILS % (AUTO) 0 % (0-10); EOSINOPHILS # (AUTO) 0.3 10^3/uL (0.0-0.3); EOSINOPHILS % (AUTO) 2 % (0-10); HEMATOCRIT 33 % (35-52); HEMOGLOBIN 10.7 g/dL (11.5-16.0); LYMPHOCYTES # (AUTO) 1.9 10^3/uL (1.0-4.0); LYMPHOCYTES % (AUTO) 12 % (12-44); MEAN CORPUSCULAR HEMOGLOBIN 28 pg (25-34); MEAN CORPUSCULAR HGB CONC 33 g/dL (32-36); MEAN CORPUSCULAR VOLUME 86 fL (80-99); MEAN PLATELET VOLUME 11.2 fL (9.0-12.2); MONOCYTES # (AUTO) 1.9 10^3/uL (0.0-1.0); MONOCYTES % (AUTO) 12 % (0-12); NEUTROPHILS # (AUTO) 11.9 10^3/uL (1.8-7.8); NEUTROPHILS % (AUTO) 74 % (42-75); PLATELET COUNT 251 10^3/uL (130-400); WHITE BLOOD COUNT 16.2 10^3/uL (4.3-11.0)
--- NOTE | 2021-08-21 09:54 | Progress Note ---
Standard Progress Note Progress Notes/Assess & Plan Date Seen by a Provider: Aug 21, 2021 Time Seen by a Provider: 09:53 Progress/Assessment & Plan This patient is a 30-year-old 2 now para [address] Schumacher for whom I am covering. Patient is without complaint. She is ambulating, voiding, tolerating oral intake well and has good pain control. She underwent delivery yesterday. Vital Signs Date Time Temp Pulse Resp B/P (MAP) Pulse Ox O2 Delivery O2 Flow Rate FiO2 08/21/21 04:54 36.9 87 18 119/67 (84) 97 Room Air 08/21/21 00:30 36.3 69 16 101/55 (70) 96 Room Air 08/20/21 20:00 36.4 70 18 102/53 (69) 96 Room Air 08/20/21 16:00 36.9 78 18 112/64 (80) 98 Room Air 08/20/21 12:23 37.0 84 18 123/61 (81) Room Air I & O 08/21/21 07:00 Intake Total 550 ml Output Total 100 ml Balance 450 ml Vital signs are stable. Patient is afebrile. Abdomen is benign Extremities show no clubbing or cyanosis. There is no Homans' sign. Pelvic exam is deferred Assessment and plan Postoperative day #1 status post repeat delivery doing well. Plan is for routine convalescent care today and consider discharge home tomorrow HÉCTOR RAMIREZ MD Aug 21, 2021 09:54
[2021-08-21] MEDS: SIMETHICONE 80 MG (MYLICON) CHEW PO SCH ×3 (10:07→23:22)
[2021-08-21 11:12] VITALS: BP 116/70
[2021-08-21] MEDS: DOCUSATE SODIUM 100 MG (COLACE) CAP PO SCH ×2 (11:14→20:07)
[2021-08-21 16:55] VITALS: BP 112/65
[2021-08-21 23:23] VITALS: BP 112/68
[2021-08-22] MEDS: IBUPROFEN 600 MG (MOTRIN) TAB PO SCH ×2 (05:03→11:00)
[2021-08-22] MEDS: HYDROcodone/APAP 5 MG/325 MG (LORTAB) TAB PO PRN ×2 (05:03→11:01)
[2021-08-22] MEDS: SIMETHICONE 80 MG (MYLICON) CHEW PO SCH ×2 (05:10→11:00)
[2021-08-22 05:13] VITALS: BP 117/69
[2021-08-22 08:15] VITALS: BP 129/66
[2021-08-22] MEDS: DOCUSATE SODIUM 100 MG (COLACE) CAP PO SCH (08:31)
--- NOTE | 2021-08-22 10:22 | Progress Note ---
Standard Progress Note Progress Notes/Assess & Plan Date Seen by a Provider: Aug 22, 2021 Time Seen by a Provider: 10:21 Progress/Assessment & Plan This patient is a 30-year-old 2 now para [address] Schumacher for whom I am covering. Patient is without complaint. She is ambulating, voiding, tolerating oral intake well and has good pain control. She underwent delivery yesterday. Vital Signs Date Time Temp Pulse Resp B/P (MAP) Pulse Ox O2 Delivery O2 Flow Rate FiO2 08/21/21 04:54 36.9 87 18 119/67 (84) 97 Room Air 08/21/21 00:30 36.3 69 16 101/55 (70) 96 Room Air 08/20/21 20:00 36.4 70 18 102/53 (69) 96 Room Air 08/20/21 16:00 36.9 78 18 112/64 (80) 98 Room Air 08/20/21 12:23 37.0 84 18 123/61 (81) Room Air I & O 08/21/21 07:00 Intake Total 550 ml Output Total 100 ml Balance 450 ml Vital signs are stable. Patient is afebrile. Abdomen is benign Extremities show no clubbing or cyanosis. There is no Homans' sign. Pelvic exam is deferred Assessment and plan Postoperative day #1 status post repeat delivery doing well. Plan is for routine convalescent care today and consider discharge home tomorrow August 22, 2021 This patient is without complaint. She is ambulating, voiding, tolerating oral intake well and has good pain control. She is requesting discharge home. Vital Signs Date Time Temp Pulse Resp B/P (MAP) Pulse Ox O2 Delivery O2 Flow Rate FiO2 08/22/21 05:13 36.0 90 18 117/69 (85) 97 Room Air 08/21/21 23:23 36.7 84 18 112/68 (83) 97 Room Air 08/21/21 16:55 36.8 83 18 112/65 (81) 98 Room Air 08/21/21 11:12 36.3 86 20 116/70 (85) 98 Room Air Vital signs are stable. Patient is afebrile. The abdomen is benign. The surgical incision is clean dry intact. Per patient report Extremities no clubbing cyanosis. Homans' sign Pelvic exam was deferred Assessment and plan Postoperative day #2 status post repeat delivery doing well. Plan is for discharge home with follow-up in clinic HÉCTOR RAMIREZ MD Aug 22, 2021 10:22
[2021-08-22 12:30] VITALS: BP 129/66
--- NOTE | 2021-08-22 14:34 | Anesthesia-Regional Post-Op ---
Regional Post Op Complications Complications None Follow Up Care/Instructions Patient Instructions None needed. Anesthesia/Patient Condition Chart reviewed with no apparent adverse anesthesia problems noted. READING,ARNALDO Villatoro CRNA Aug 22, 2021 14:34
== END 2021-08-22 12:30 | disposition home or self-care (01) | DRG 788 ==
LOC: LDRP 05:32
PROVIDERS: ADMIT Obstetrics & Gynecology; ATTEND Obstetrics & Gynecology
PROC: 10D00Z1 Extraction of Products of Conception, Low, Open Approach (ICD-10-PCS; principal; 2021-08-20 07:25)
DX: O34.211 Maternal care for low transverse scar from previous cesarean delivery (principal); Z3A.39 39 weeks gestation of pregnancy; Z37.0 Single live birth; Z28.310 Unvaccinated for COVID-19
CPT/HCPCS: 36415; 83033; 85025; 86850; 86900; 86901; 87081; 94664